=== PATIENT | female | born 1965 | race Caucasian/White ===

== ENCOUNTER 2016-12-28 15:20 | Emergency (ER) | payer OTHER ==
[~2016-12-28] VITALS: Ht 165.1 cm; Wt 63.5 kg
[~2016-12-28 15:20] MED LIST: ASPIRIN81 M1 PO; BIRTH CONTROL PILL PO; GLUCOPHAGE500 MG PO; IBUPROFEN800 MG PO; MOTRIN800 MG PO; NAPROSYN500 MG PO; NORCO 5/325 MG1 TAB PO; PROZAC10 MG PO; UNK ABX
[2016-12-28 15:52] VITALS: BP 126/71
--- NOTE | 2016-12-28 15:59 | NUR ---
PATIENT PRESENTS TO ED WITH PT PRESENTS TO ER W/C/O LEFT EYE PAIN X3 DAYS. HX DM. DENIES N/V/D; SKIN IS PINK/WARM/DRY; AAOX4 WITH EVEN AND STEADY GAIT; LUNGS CLEAR BL; HR EVEN AND REGULAR; PT DENIES ANY FEVER, CP, SOB, OR COUGH AT THIS TIME; PATIENT STATES PAIN OF 5/10 AT THIS TIME; VSS; PATIENT POSITIONED FOR COMFORT; HOB ELEVATED; BEDRAILS UP X2; BED DOWN. ER MD MADE AWARE OF PT STATUS.
--- NOTE | 2016-12-28 16:03 | NUR ---
Dr. Oh evaluating patient at bedside.
[2016-12-28] MEDS ORDERED: LIDOCAINE 1% 500 MG/50 ML VIAL INJ ONE (16:10)
[2016-12-28 16:53] VITALS: BP 120/72
--- NOTE | 2016-12-28 16:53 | NUR ---
Patient discharged with v/s stable. Written and verbal after care instructions given and explained. Patient alert, oriented and verbalized understanding of instructions. Ambulatory with steady gait. All questions addressed prior to discharge. ID band removed. Patient advised to follow up with PMD. Rx of DOXYCYCLINE AND MOTRIN given. Patient educated on indication of medication including possible reaction and side effects. Opportunity to ask questions provided and answered.
== END 2016-12-28 16:53 | disposition home or self-care (01) ==
LOC: MED 15:20
DX: H00.014 Hordeolum externum left upper eyelid (principal); K21.9 Gastro-esophageal reflux disease without esophagitis; E11.9 Type 2 diabetes mellitus without complications; I10 Essential (primary) hypertension; E78.00 Pure hypercholesterolemia, unspecified
CPT/HCPCS: 10021; 99284; J2001

== ENCOUNTER 2017-05-18 21:02 | Emergency (ER) | payer OTHER ==
[~2017-05-18] VITALS: Ht 165.1 cm; Wt 61.2 kg
[~2017-05-18 21:02] MED LIST changes: +ASPI81CT89 PO; -ASPIRIN81 M1 PO; -BIRTH CONTROL PILL PO; +FLUO10CA21 PO; -GLUCOPHAGE500 MG PO; -IBUPROFEN800 MG PO; +METF500T PO; -MOTRIN800 MG PO; +NAPR500T1 PO; -NAPROSYN500 MG PO; -NORCO 5/325 MG1 TAB PO; -PROZAC10 MG PO; -UNK ABX
[2017-05-18 21:14] VITALS: BP 108/73
--- NOTE | 2017-05-18 22:57 | NUR ---
PATIENT LEFT WITHOUT BEING SEEN BY DR. LAMBERT. NO FURTHER CARE PROVIDED FOR PATIENT.
== END 2017-05-18 22:57 | disposition left against medical advice (07) ==
LOC: MED 21:02
DX: R10.9 Unspecified abdominal pain (principal); Z53.21 Procedure and treatment not carried out due to patient leaving prior to being seen by health care provider

== ENCOUNTER 2019-09-21 01:51 | Emergency (ER) | payer OTHER ==
[~2019-09-21] VITALS: Ht 165.1 cm; Wt 68.0 kg
[~2019-09-21 01:51] MED LIST changes: +ASPI-1718 PO; -ASPI81CT89 PO; +NAPR-54 PO; -NAPR500T1 PO
[2019-09-21 01:55] VITALS: BP 123/72
--- NOTE | 2019-09-21 01:55 | NUR ---
to bed # 07 ambulatory
--- NOTE | 2019-09-21 01:55 | NUR ---
54 Y.O FEMALE C/O BURNING, URGENCY AND FREQUENCY OF URINATION X3 DAYS. PAIN IS AN 8/10 DULL PAIN THE THE FLANKS AND LOWER BACK. NO TENDERNESS NOTED UPON PALPATION ON THE LOWER BACK. PATIENT STATE," I KNOW I HAVE A UTI. MY URINE HAS A FOWL SMELL TO IT". A/OX4 FOLLOWS COMMANDS; BREATHING UNLABORED AND SYMMETRICAL. ERMD MADE AWARE OF STATUS. SIDE RAILS X1. PMH: DENTANNA NKDA RX:DENIES Addendum: 09/21/19 at 0229 by CRISTINA HX: OF DIABETES; GALLSTONES; HIGH CHOLESTEROL.
[2019-09-21] MEDS ORDERED: cefTRIAXone 1,000 MG in LIDOCAINE MPF 1% 2.1 ML IM ONE (02:25)
--- NOTE | 2019-09-21 02:38 | NUR ---
Dr. Oh examining patient.
[2019-09-21 02:45] VITALS: BP 123/72
--- NOTE | 2019-09-21 02:45 | NUR ---
PT DISCHARGED WITH PAPERWORK. RX BACTRIM, PYRIDIUM. EDUCATED PT REGARDING MEDICATIONS AND S/E. EDUCATED PT REGARDING D/C DIAGNOSIS AND INSTRUCTIONS. PT VERBALIZED UNDERSTANDING OF TEACHING. TOLD PT TO FOLLOW UP WITH PCP AND AND WHEN TO RETURN TO ED. PT VSS. ALL QUESTIONS ANSWERED.
== END 2019-09-21 02:45 | disposition home or self-care (01) ==
LOC: MED 01:51
DX: N39.0 Urinary tract infection, site not specified (principal); K21.9 Gastro-esophageal reflux disease without esophagitis; I10 Essential (primary) hypertension; E11.9 Type 2 diabetes mellitus without complications; E78.00 Pure hypercholesterolemia, unspecified; Z79.899 Other long term (current) drug therapy; Z79.82 Long term (current) use of aspirin
CPT/HCPCS: 81002; 87086; 87186; 96372; 99283; J0696; J2001

== ENCOUNTER 2020-01-01 22:05 | Emergency (ER) | payer OTHER ==
[~2020-01-01] VITALS: Ht 162.6 cm; Wt 68.0 kg
[~2020-01-01 22:05] MED LIST changes: -ASPI-1718 PO; +ASPI-1822 PO
[2020-01-01 22:10] VITALS: BP 121/84
--- NOTE | 2020-01-01 22:13 | NUR ---
TO LOBBY A/W BED AMBULATORY
--- NOTE | 2020-01-01 23:05 | NUR ---
PT CALLED FROM LOBBY, NO ANSWER, LWBS
--- NOTE | 2020-01-01 23:05 | NUR ---
PATIENT LEFT WITHOUT BEING SEEN BY DR. FITZPATRICK. NO FURTHER CARE PROVIDED FOR PATIENT.
[2020-01-01 23:06] VITALS: BP 121/84
== END 2020-01-01 23:03 | disposition left against medical advice (07) ==
LOC: MED 22:05
DX: R11.10 Vomiting, unspecified (principal); Z53.21 Procedure and treatment not carried out due to patient leaving prior to being seen by health care provider

== ENCOUNTER 2020-04-20 17:47 | Emergency (ER) | payer OTHER ==
[~2020-04-20] VITALS: Ht 160 cm; Wt 66.3 kg
[2020-04-20 17:54] VITALS: BP 100/70
--- NOTE | 2020-04-20 17:54 | NUR ---
54 Y/O F C/C THROAT DISCOMFORT SINCE THIS MORNING. PAIN 3/10 EVERY TIME SHE SWALLOWS, PER PT BELIEVES ITS THE LYMPH NODES, HAS HAD HAPPENED BEFORE. PT NKA. NO HX. NO RX. NO NVD. SIDE RAIL X1. PT NO DISTRESS, EUPNIC. VSS.
--- NOTE | 2020-04-20 17:56 | NUR ---
ERMD AT BEDSIDE
[2020-04-20] MEDS ORDERED: IBUPROFEN 800 MG TAB PO ONE (18:00)
[2020-04-20 18:06] VITALS: BP 100/70
== END 2020-04-20 18:06 | disposition home or self-care (01) ==
LOC: MED 17:47
DX: J02.9 Acute pharyngitis, unspecified (principal); E11.9 Type 2 diabetes mellitus without complications; I10 Essential (primary) hypertension; I51.89 Other ill-defined heart diseases; K21.9 Gastro-esophageal reflux disease without esophagitis; Z79.899 Other long term (current) drug therapy
CPT/HCPCS: 99282

== ENCOUNTER 2020-05-10 12:29 | Emergency (ER) | payer OTHER, SELFPAY ==
[~2020-05-10] VITALS: Ht 160 cm; Wt 62.1 kg
[2020-05-10 12:30] VITALS: BP 106/72
--- NOTE | 2020-05-10 12:35 | NUR ---
54/F presents to ED c/o cough, SOB, sore throat, headache and pain to left flank area starting yesterday. Pt denies any N/V/D. Denies recent travel. States she may have been in contact with someone covid + 4 weeks ago but did not find out he was tested and positive until 2 weeks ago. Denies any medical hx. Denies fever or chills.
--- NOTE | 2020-05-10 13:46 | NUR ---
Patient discharged with v/s stable. Written and verbal after care instructions given and explained. Patient alert, oriented and verbalized understanding of instructions. Ambulatory with steady gait. All questions addressed prior to discharge. ID band removed. Patient advised to follow up with PMD. Rx of ACETAMINOPHEN, IBUPROFEN & PROMETHAZINE given. Patient educated on indication of medication including possible reaction and side effects. Opportunity to ask questions provided and answered.
[2020-05-10 13:47] VITALS: BP 106/72
--- NOTE | 2020-05-15 20:47 | NUR ---
PT POSITIVE FOR COVID-19. RESULTS-SENT TO INFECTION CONTROL AND HOUSE SUP
== END 2020-05-10 13:46 | disposition home or self-care (01) ==
LOC: EEVIPCON 12:29 → MED 12:29
DX: U07.1 COVID-19 (principal); B34.9 Viral infection, unspecified; E11.9 Type 2 diabetes mellitus without complications; F17.210 Nicotine dependence, cigarettes, uncomplicated; F15.10 Other stimulant abuse, uncomplicated; I10 Essential (primary) hypertension; I51.9 Heart disease, unspecified; Z79.899 Other long term (current) drug therapy
CPT/HCPCS: 99283; U0003

== ENCOUNTER 2021-02-24 22:01 | Emergency (ER) | payer OTHER, SELFPAY ==
[~2021-02-24] VITALS: Ht 160 cm; Wt 63.5 kg
[2021-02-24 22:12] VITALS: BP 118/76
[2021-02-24] MEDS ORDERED: CYCLOBENZAPRINE 10 MG TAB PO ONE (23:25)
[2021-02-24] MEDS ORDERED: ACETAMINOPHEN EXTRA STRENGTH 500 MG TAB PO ONE (23:25)
[2021-02-25] MEDS ORDERED: ACET-9882 PO (00:23)
[2021-02-25] MEDS ORDERED: CYCL1POW PO (00:23)
[2021-02-25 00:40] VITALS: BP 115/73
== END 2021-02-25 00:40 | disposition home or self-care (01) ==
LOC: MED 22:01
DX: M54.9 Dorsalgia, unspecified (principal); M25.512 Pain in left shoulder; M79.632 Pain in left forearm; F17.210 Nicotine dependence, cigarettes, uncomplicated; V89.2XXA Person injured in unspecified motor-vehicle accident, traffic, initial encounter; Y93.89 Activity, other specified; Y92.89 Other specified places as the place of occurrence of the external cause; Y99.8 Other external cause status
CPT/HCPCS: 72072; 99283

== ENCOUNTER 2022-03-08 21:16 | Emergency (ER) | payer OTHER ==
[~2022-03-08] VITALS: Ht 162.6 cm; Wt 68.0 kg
[~2022-03-08 21:16] MED LIST changes: +ACET-9882 PO; +CYCL1POW PO; +METF-564 PO; -METF500T PO
[2022-03-08 21:40] VITALS: BP 120/76
--- NOTE | 2022-03-08 21:48 | NUR ---
pt taken to er bed 09
[2022-03-08] MEDS ORDERED: ONDANSETRON 4 MG TAB PO ONE (21:50)
--- NOTE | 2022-03-08 22:07 | NUR ---
XRAY AT BEDSIDE
--- NOTE | 2022-03-08 22:22 | NUR ---
Hilda palmer in [facility] - 03/08/22 at [address] Malagon examining patient.
--- NOTE | 2022-03-08 22:27 | NUR ---
DR ADAM EXAMINING PT
--- NOTE | 2022-03-08 22:31 | NUR ---
ER MD AT BEDSIDE EXAMINING PT
--- NOTE | 2022-03-08 22:32 | NUR ---
56 Y/O FEMALE BIBS, C/O NAUSEA SINCE 0400 TODAY. PT INDUCED VOMIT TO RELIEVE NAUSEA, CLEAR LIQUIDS. PT STATES SHE HAS A FEELING OF FULLNESS AND NO PAIN IN HER ABDOMEN. PT IS CONSTIPATED WITH LAST BM TODAY. NO BLOOD IN VOMIT OR STOOL. A/OX4, GCS-15, UNLABORED BREATHING. PT DENIES FEVER, DIARRHEA, CP, SOB, OR COUGH. PT HAS NO PAIN AT THIS TIME. PT IS AMBULATORY WITH STEADY GAIT. NO SIGN OF INJURY. HX: ACID REFLUX NKA SX: APPENDECTOMY, , AND HYSTERECTOMY
[2022-03-08] MEDS ORDERED: MAGNESIUM HYDROXIDE 2400 MG/30 ML UDC PO ONE (22:40)
[2022-03-08 22:44] LABS: BASOPHILS # (AUTO) 0.1 K/uL (0.00-0.22); BASOPHILS % (AUTO) 1.1 % (0.0-2.0); EOSINOPHILS # (AUTO) 0.1 K/uL (0-0.4); EOSINOPHILS % (AUTO) 1.8 % (0.0-4.0); HEMATOCRIT 41.1 % (36-48); HEMOGLOBIN 13.7 g/dL (12.0-16.0); LYMPHOCYTES # (AUTO) 2.5 K/uL (2.5-16.5); MEAN CORPUSCULAR HEMOGLOBIN 31 pg (27-31); MEAN CORPUSCULAR HGB CONC 33 g/dL (33-37); MONOCYTES # (AUTO) 0.4 K/uL (0.8-1.0); MONOCYTES % (AUTO) 6.2 % (1.7-9.3); NEUTROPHILS # (AUTO) 3.5 K/uL (1.8-7.7); NEUTROPHILS % (AUTO) 52.9 % (42.2-75.2); PLATELET COUNT (AUTO) 259 K/uL (140-450); RED BLOOD CELL COUNT(AUTO) 4.47 MIL/uL (4.20-5.40); RED CELL DISTRIBUTION WIDTH 13.6 % (11.6-13.7); WHITE BLOOD COUNT (AUTO) 6.6 K/uL (4.8-10.8)
[2022-03-08 23:23] LABS: ALBUMIN 3.4 g/dL (3.4-5.0); ANION GAP 11.4 (8-16); ASPARTATE AMINOTRANSFERASE 19 U/L (15-37); CARBON DIOXIDE 26.2 mmol/L (21-32); CHLORIDE 106 mmol/L (98-107); CREATININE 0.8 mg/dL (0.6-1.3); GFR ARICAN-AMERICAN 96 mL/min (>90); GLUCOSE 122 mg/dL (74-106); LIPASE 114 U/L (73-393); POTASSIUM 3.6 mmol/L (3.5-5.1); SODIUM SERUM 140 mmol/L (136-145); TOTAL BILIRUBIN 0.2 mg/dL (0.0-1.0); UREA NITROGEN, BLOOD 17 mg/dL (7-18)
[2022-03-09] MEDS ORDERED: LACT10SO86 PO (00:40)
[2022-03-09] MEDS ORDERED: ONDA-188 SL (00:40)
[2022-03-09 00:50] VITALS: BP 120/72
--- NOTE | 2022-03-09 00:51 | NUR ---
Patient discharged with v/s stable. Written and verbal after care instructions given and explained. Patient alert, oriented and verbalized understanding of instructions. Ambulatory with steady gait. All questions addressed prior to discharge. ID band removed. Patient advised to follow up with PMD. Rx of LACTULOSE AND ZOFRAN given. Patient educated on indication of medication including possible reaction and side effects. Opportunity to ask questions provided and answered. VSS, A/OX4, AMBULATORY, UNLABORED BREATHING, AND CALM DEMEANOR.
[2022-03-09] MEDS ORDERED: CEPH-588 PO (00:55)
== END 2022-03-09 00:51 | disposition home or self-care (01) ==
LOC: MED 21:16
DX: N39.0 Urinary tract infection, site not specified (principal); R11.0 Nausea; K59.00 Constipation, unspecified; K21.9 Gastro-esophageal reflux disease without esophagitis; I10 Essential (primary) hypertension; F17.200 Nicotine dependence, unspecified, uncomplicated; Z90.710 Acquired absence of both cervix and uterus; Z98.890 Other specified postprocedural states; Z90.49 Acquired absence of other specified parts of digestive tract; Z79.899 Other long term (current) drug therapy; Z79.84 Long term (current) use of oral hypoglycemic drugs; Z79.82 Long term (current) use of aspirin; Z71.6 Tobacco abuse counseling
CPT/HCPCS: 36415; 71045; 80053; 81002; 81025; 83690; 84484; 85025; 93005; 99285; Q0162

== ENCOUNTER 2022-04-26 16:57 | Emergency (ER) | payer OTHER ==
[~2022-04-26] VITALS: Ht 160 cm; Wt 70.3 kg
[~2022-04-26 16:57] MED LIST changes: +CEPH-588 PO; +LACT10SO86 PO; +METF-346 PO; -METF-564 PO; +ONDA-188 SL
[2022-04-26 17:06] VITALS: BP 130/88
--- NOTE | 2022-04-26 17:39 | NUR ---
PT AMBULATED TO BED 02.
[2022-04-26] MEDS ORDERED: KETOROLAC 15 MG/ML VIAL IVP ONE (18:00)
[2022-04-26] MEDS ORDERED: diphenhydrAMINE 50 MG/ML VIAL IVP ONE (18:00)
[2022-04-26] MEDS ORDERED: NACL 0.9% 1,000 ML IV ONE (18:00)
[2022-04-26] MEDS ORDERED: PROCHLORPERAZINE 10 MG/2 ML VIAL IVP ONE (18:00)
[2022-04-26] MEDS ORDERED: IMI25 PO (18:51)
[2022-04-26] MEDS ORDERED: NAPR-54 PO (18:51)
--- NOTE | 2022-04-26 19:13 | NUR ---
GAVE REPORT TO JEAN CARLOS TSE. TRANSFER OF CARE AT THIS TIME.
[2022-04-26 20:19] VITALS: BP 129/88
== END 2022-04-26 20:20 | disposition home or self-care (01) ==
LOC: MED 16:57
DX: G43.909 Migraine, unspecified, not intractable, without status migrainosus (principal); R03.0 Elevated blood-pressure reading, without diagnosis of hypertension; E11.9 Type 2 diabetes mellitus without complications; E78.00 Pure hypercholesterolemia, unspecified; K21.9 Gastro-esophageal reflux disease without esophagitis; I10 Essential (primary) hypertension; Z79.899 Other long term (current) drug therapy; Z79.1 Long term (current) use of non-steroidal anti-inflammatories (NSAID); Z79.2 Long term (current) use of antibiotics; Z79.82 Long term (current) use of aspirin
CPT/HCPCS: 96361; 96374; 96375; 99284; J0780; J1200; J1885; J7030

== ENCOUNTER 2022-05-15 20:29 | Emergency (ER) | payer OTHER ==
[~2022-05-15] VITALS: Ht 160 cm; Wt 68.0 kg
[~2022-05-15 20:29] MED LIST changes: +IMI25 PO
[2022-05-15 20:50] VITALS: BP 108/73
--- NOTE | 2022-05-15 21:02 | NUR ---
Blood for labwork drawn from left arm per reproduction machine loader. Patient tolerated well.
[2022-05-15 21:33] LABS: BASOPHILS # (AUTO) 0.1 K/uL (0.00-0.22); BASOPHILS % (AUTO) 0.8 % (0.0-2.0); EOSINOPHILS # (AUTO) 0.2 K/uL (0-0.4); EOSINOPHILS % (AUTO) 1.9 % (0.0-4.0); HEMOGLOBIN 14.8 g/dL (12.0-16.0); MEAN CORPUSCULAR HEMOGLOBIN 30 pg (27-31); MEAN CORPUSCULAR HGB CONC 33 g/dL (33-37); MEAN CORPUSCULAR VOLUME 92.7 fL (80-94); MONOCYTES # (AUTO) 0.5 K/uL (0.8-1.0); MONOCYTES % (AUTO) 5.7 % (1.7-9.3); NEUTROPHILS # (AUTO) 5.2 K/uL (1.8-7.7); NEUTROPHILS % (AUTO) 57.6 % (42.2-75.2); PLATELET COUNT (AUTO) 287 K/uL (140-450); RED BLOOD CELL COUNT(AUTO) 4.85 MIL/uL (4.20-5.40); RED CELL DISTRIBUTION WIDTH 13.7 % (11.6-13.7)
[2022-05-15 21:47] LABS: ANION GAP 10.6 (8-16); CREATININE 0.8 mg/dL (0.6-1.3); POTASSIUM 3.6 mmol/L (3.5-5.1); TOTAL BILIRUBIN 0.4 mg/dL (0.0-1.0)
--- NOTE | 2022-05-16 00:23 | NUR ---
Dr. Dominguez examining patient
[2022-05-16] MEDS ORDERED: DICYCLOMINE 20 MG/2 ML VIAL IM ONE (00:25)
[2022-05-16] MEDS ORDERED: BEN10 PO (01:11)
[2022-05-16 01:18] VITALS: BP 135/75
--- NOTE | 2022-05-16 01:18 | NUR ---
Patient discharged with v/s stable. Written and verbal after care instructions given and explained for Diarrhea, Adult. Patient alert, oriented and verbalized understanding of instructions. Ambulatory with steady gait. All questions addressed prior to discharge. ID band removed. Patient advised to follow up with PMD. Rx of Bentyl given. Patient educated on indication of medication including possible reaction and side effects. Opportunity to ask questions provided and answered.
[2022-05-16 01:43] LABS: BARBITURATE, URINE NEGATIVE ng/ml (NEG <=200); BENZODIAZEPINE, URINE NEGATIVE ng/mL (NEG <=200); CANNABINOID, URINE NEGATIVE ng/mL (NEG <=50); COCAINE, URINE NEGATIVE ng/mL (NEG <=300); OPIATE, URINE NEGATIVE ng/mL (NEG <=2000); PHENCYCLIDINE SCREEN,URINE NEGATIVE ng/mL (NEG <=25)
== END 2022-05-16 01:18 | disposition home or self-care (01) ==
LOC: MED 20:29 → EEVIPCON 20:29 → MED 05-16 01:18
DX: R19.7 Diarrhea, unspecified (principal); E11.9 Type 2 diabetes mellitus without complications; K21.9 Gastro-esophageal reflux disease without esophagitis; I10 Essential (primary) hypertension; F17.210 Nicotine dependence, cigarettes, uncomplicated; Z79.899 Other long term (current) drug therapy; Z79.84 Long term (current) use of oral hypoglycemic drugs; Z79.82 Long term (current) use of aspirin; Z90.49 Acquired absence of other specified parts of digestive tract
CPT/HCPCS: 36415; 80053; 80305; 81002; 81025; 83690; 85025; 96372; 99283; J0500

== ENCOUNTER 2022-05-20 06:43 | Emergency (ER) | payer OTHER ==
[~2022-05-20] VITALS: Ht 160 cm; Wt 68.0 kg
[~2022-05-20 06:43] MED LIST changes: +BEN10 PO
[2022-05-20 06:44] VITALS: BP 121/63
--- NOTE | 2022-05-20 07:01 | NUR ---
56 yo/f presents to ED w c/o migraine 10/10 pressure, non-rad constant x1 day worsening x2 hours, + chest tightness 8/10 radiating to epigastric area int x2 hour, + nausea. Connected to monitor. ermd at bedside assessing pt. pmh: migraines allergies: denies
[2022-05-20] MEDS ORDERED: NACL 0.9% 1,000 ML IV SCH (07:10)
[2022-05-20] MEDS ORDERED: diphenhydrAMINE 50 MG/ML VIAL IVP ONE (07:10)
[2022-05-20] MEDS ORDERED: KETOROLAC 30 MG/ML VIAL IVP ONE (07:10)
[2022-05-20] MEDS ORDERED: DEXAMETHASONE 10 MG/ML VIAL IVP ONE (07:10)
[2022-05-20] MEDS ORDERED: METOCLOPRAMIDE 10 MG/2 ML INJ VIAL IVP ONE (07:10)
--- NOTE | 2022-05-20 07:18 | NUR ---
Pt report given to marta mcmahon. Transfer of care at this time.
[2022-05-20 08:13] LABS: BASOPHILS # (AUTO) 0.1 K/uL (0.00-0.22); BASOPHILS % (AUTO) 1.1 % (0.0-2.0); EOSINOPHILS # (AUTO) 0.1 K/uL (0-0.4); EOSINOPHILS % (AUTO) 1.2 % (0.0-4.0); HEMATOCRIT 35.7 % (36-48); HEMOGLOBIN 11.9 g/dL (12.0-16.0); LYMPHOCYTES # (AUTO) 0.5 K/uL (2.5-16.5); LYMPHOCYTES % (AUTO) 9.9 % (20.5-51.1); MEAN CORPUSCULAR HEMOGLOBIN 30 pg (27-31); MEAN CORPUSCULAR HGB CONC 33 g/dL (33-37); MONOCYTES # (AUTO) 0.6 K/uL (0.8-1.0); NEUTROPHILS # (AUTO) 3.9 K/uL (1.8-7.7); NEUTROPHILS % (AUTO) 76.8 % (42.2-75.2); PLATELET COUNT (AUTO) 203 K/uL (140-450); RED BLOOD CELL COUNT(AUTO) 3.93 MIL/uL (4.20-5.40); RED CELL DISTRIBUTION WIDTH 13.3 % (11.6-13.7); WHITE BLOOD COUNT (AUTO) 5.1 K/uL (4.8-10.8)
[2022-05-20 08:18] LABS: ALBUMIN 3.1 g/dL (3.4-5.0); ANION GAP 10.9 (8-16); ASPARTATE AMINOTRANSFERASE 71 U/L (15-37); CARBON DIOXIDE 26.8 mmol/L (21-32); CHLORIDE 105 mmol/L (98-107); CREATININE 0.6 mg/dL (0.6-1.3); GFR ARICAN-AMERICAN 134 mL/min (>90); GLUCOSE 111 mg/dL (74-106); POTASSIUM 3.7 mmol/L (3.5-5.1); SODIUM SERUM 139 mmol/L (136-145); TOTAL BILIRUBIN 0.1 mg/dL (0.0-1.0); UREA NITROGEN, BLOOD 13 mg/dL (7-18)
[2022-05-20] MEDS ORDERED: DEXAMETHASONE 10 MG/ML VIAL ONE (08:34)
[2022-05-20] MEDS ORDERED: diphenhydrAMINE 50 MG/ML VIAL ONE (08:35)
[2022-05-20] MEDS ORDERED: KETOROLAC 30 MG/ML VIAL ONE (08:35)
[2022-05-20] MEDS ORDERED: METOCLOPRAMIDE 10 MG/2 ML INJ VIAL ONE (08:35)
--- NOTE | 2022-05-20 09:30 | NUR ---
GRECIA AND INFLU SWAB SENT TO LAB WITH GOSIA
--- NOTE | 2022-05-20 09:49 | NUR ---
LAB AT BEDSIDE
--- NOTE | 2022-05-20 10:35 | NUR ---
PT CALM AND RESTING.
[2022-05-20] MEDS ORDERED: ACET-10509 PO (11:17)
[2022-05-20 11:25] VITALS: BP 123/65
[2022-05-20 11:29] LABS: APPEARANCE,URINE CLEAR (CLEAR); BILIRUBIN,URINE NEGATIVE (NEGATIVE); BLOOD, URINE TRACE-I (NEGATIVE); COLOR,URINE YELLOW (YELLOW); LEUKOCYTE ESTERASE ,URINE NEGATIVE (NEGATIVE); NITRITE, URINE NEGATIVE (NEGATIVE); PH,URINE 6.5 (5.0-9.0); UGLUCOSE NEGATIVE (NEGATIVE)
[2022-05-20 11:41] LABS: BARBITURATE, URINE NEGATIVE ng/ml (NEG <=200); BENZODIAZEPINE, URINE NEGATIVE ng/mL (NEG <=200); CANNABINOID, URINE NEGATIVE ng/mL (NEG <=50); COCAINE, URINE NEGATIVE ng/mL (NEG <=300); OPIATE, URINE NEGATIVE ng/mL (NEG <=2000); PHENCYCLIDINE SCREEN,URINE NEGATIVE ng/mL (NEG <=25)
[2022-05-20 11:49] LABS: CALCIUM OXALATE CRYSTALS,UR None Seen /HPF (None Seen); COARSE GRANULAR CASTS,URINE None Seen /LPF (None Seen); FINE GRANULAR CASTS,URINE None Seen /LPF (None Seen); HYALINE CASTS, URINE None Seen /LPF (None Seen); OTHER CASTS, URINE None Seen /LPF (None Seen); OTHER CRYSTALS,URINE None Seen /HPF (None Seen); RED BLOOD CELL CASTS,URINE None Seen /LPF (None Seen); TRICHOMONAS,URINE None Seen /HPF (None Seen); TRIPLE PHOSPHATE CRYSTAL,UR None Seen /HPF (None Seen); URIC ACID CRYSTALS,URINE None Seen /HPF (None Seen); URINE AMORPHOUS URATE None Seen /HPF (None Seen); WAXY CASTS,URINE None Seen /LPF (None Seen); WBC,URINE 0-5 /HPF (0-5); YEAST,URINE None Seen /HPF (None Seen)
== END 2022-05-20 11:25 | disposition home or self-care (01) ==
LOC: MED 06:43
DX: G43.909 Migraine, unspecified, not intractable, without status migrainosus (principal); Z20.822 Contact with and (suspected) exposure to COVID-19; I10 Essential (primary) hypertension; R74.01 Elevation of levels of liver transaminase levels; R07.9 Chest pain, unspecified; B34.9 Viral infection, unspecified; K21.9 Gastro-esophageal reflux disease without esophagitis; E11.9 Type 2 diabetes mellitus without complications; F15.90 Other stimulant use, unspecified, uncomplicated; Z79.899 Other long term (current) drug therapy; Z79.82 Long term (current) use of aspirin; Z79.84 Long term (current) use of oral hypoglycemic drugs
CPT/HCPCS: 36415; 71045; 80053; 80305; 81001; 81025; 82550; 83605; 84484; 85025; 87040; 87086; 87426; 87804; 93005; 96361; 96374; 96375; 99285; J1100; J1200; J1885; J2765; Q0092; J7030

== ENCOUNTER 2022-08-09 21:10 | Emergency (ER) | payer OTHER ==
[~2022-08-09] VITALS: Ht 162.6 cm; Wt 67.6 kg
[~2022-08-09 21:10] MED LIST changes: +ACET-10509 PO
[2022-08-09 21:24] VITALS: BP 117/82
--- NOTE | 2022-08-09 23:30 | NUR ---
PATIENT CALLED TO BE ON BED , NO RESPONSE. PATIENT LEFT WITHOUT BEING SEEN BY DR. ANDERSON. NO FURTHER CARE PROVIDED FOR PATIENT.
--- NOTE | 2022-08-09 23:35 | NUR ---
CALLED FOR THE SECOND TIME, NO RESPONSE
--- NOTE | 2022-08-09 23:45 | NUR ---
CALLED FOR THE THIRD TIME, NO RESPONSE
== END 2022-08-09 23:30 | disposition left against medical advice (07) ==
LOC: MED 21:10
DX: M54.50 Low back pain, unspecified (principal); Z53.21 Procedure and treatment not carried out due to patient leaving prior to being seen by health care provider

== ENCOUNTER 2022-09-05 15:44 | Emergency (ER) | payer OTHER ==
[~2022-09-05] VITALS: Ht 160 cm; Wt 64.9 kg
[2022-09-05 16:01] VITALS: BP 125/89
[2022-09-05] MEDS ORDERED: ONDANSETRON 4 MG/2 ML VIAL IVP ONE ×2 (16:35→18:05)
[2022-09-05] MEDS ORDERED: NACL 0.9% 1,000 ML IV ONE (16:35)
[2022-09-05 16:48] LABS: BASOPHILS # (AUTO) 0.1 K/uL (0.00-0.22); BASOPHILS % (AUTO) 0.9 % (0.0-2.0); EOSINOPHILS # (AUTO) 0.1 K/uL (0-0.4); HEMATOCRIT 42.8 % (36-48); HEMOGLOBIN 14.4 g/dL (12.0-16.0); LYMPHOCYTES # (AUTO) 2.6 K/uL (2.5-16.5); LYMPHOCYTES % (AUTO) 37.1 % (20.5-51.1); MEAN CORPUSCULAR HEMOGLOBIN 31 pg (27-31); MEAN CORPUSCULAR HGB CONC 34 g/dL (33-37); MEAN CORPUSCULAR VOLUME 91.9 fL (80-94); MONOCYTES # (AUTO) 0.5 K/uL (0.8-1.0); MONOCYTES % (AUTO) 6.6 % (1.7-9.3); NEUTROPHILS # (AUTO) 3.8 K/uL (1.8-7.7); NEUTROPHILS % (AUTO) 54.4 % (42.2-75.2); PLATELET COUNT (AUTO) 252 K/uL (140-450); RED BLOOD CELL COUNT(AUTO) 4.65 MIL/uL (4.20-5.40); RED CELL DISTRIBUTION WIDTH 13.3 % (11.6-13.7)
--- NOTE | 2022-09-05 17:09 | NUR ---
57 y/o female bib self with c/o nausea, vomiting and epigastric pain x yesterday. Patient states she has 7/10 dull pain to epigastric area. Patient denies any new foods or sick contacts. Patient states she has had this once before but that it went away after a while. Denies taking any medication for nausea. Denies fever, chills or diarrhea. Patient's last BM was 09/05/22. Medical History: Denies NKDA
--- NOTE | 2022-09-05 17:10 | NUR ---
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 PATIENT REPORTS HX OF ACID REFLUX AND BELIEVES MAY BE RELATED TO PAIN, PATIENT DENIES PAIN, DIARRHEA OR CONSTIPATION, STATES "I'VE BEEN TRYING TO MAKE MYSELF THROW UP BUT I CAN'T." DENIES RECENT SICK CONTACTS.
[2022-09-05 17:15] LABS: ALBUMIN 3.4 g/dL (3.4-5.0); CREATININE 0.7 mg/dL (0.6-1.3); TOTAL BILIRUBIN 0.3 mg/dL (0.0-1.0)
--- NOTE | 2022-09-05 17:32 | NUR ---
X-Ray at bedside.
[2022-09-05] MEDS ORDERED: PANTOPRAZOLE 40 MG INJ VIAL IVP ONE (18:05)
--- NOTE | 2022-09-05 18:36 | NUR ---
Patient ambulated to restroom with steady gait.
[2022-09-05] MEDS ORDERED: PANT40EC PO (19:07)
[2022-09-05] MEDS ORDERED: ONDA-188 PO (19:07)
--- NOTE | 2022-09-05 19:12 | NUR ---
Report given to JEAN CARLOS Clark for transfer of care.
[2022-09-05 19:23] VITALS: BP 115/72
--- NOTE | 2022-09-05 19:24 | NUR ---
Patient discharged with v/s stable. Written and verbal after care instructions given and explained. Patient alert, oriented and verbalized understanding of instructions. Ambulatory with steady gait. All questions addressed prior to discharge. ID band removed. Patient advised to follow up with PMD. Rx given to patient. Patient educated on indication of medication including possible reaction and side effects. Opportunity to ask questions provided and answered. PAtient stated after receiving medication and eating food, she "feels better."
[2022-09-05 22:16] LABS: APPEARANCE,URINE CLEAR (CLEAR); BILIRUBIN,URINE NEGATIVE (NEGATIVE); BLOOD, URINE TRACE-I (NEGATIVE); COLOR,URINE YELLOW (YELLOW); LEUKOCYTE ESTERASE ,URINE NEGATIVE (NEGATIVE); NITRITE, URINE NEGATIVE (NEGATIVE); UGLUCOSE NEGATIVE (NEGATIVE)
[2022-09-05 22:31] LABS: RBC,URINE 0-5 /HPF (0-5)
[2022-09-08] MEDS ORDERED: CEPH500C16 PO (19:00)
--- NOTE | 2022-09-08 19:03 | NUR ---
LAT ENTRY, RECEIVED POSITIVE URINE CULTURE. FORM GIVEN TO DR BAH. RX OF KEFLEX SENT TO PTS PHARMACY. DR BAH ATTEMPTED TO CALL PT TO INFORM THEM, NO ANSWER, LEFT MESSAGE. FORM PLACED IN BINDER.
== END 2022-09-05 19:25 | disposition home or self-care (01) ==
LOC: MED 15:44
DX: K52.9 Noninfective gastroenteritis and colitis, unspecified (principal); N18.2 Chronic kidney disease, stage 2 (mild); E11.9 Type 2 diabetes mellitus without complications; I10 Essential (primary) hypertension; I25.10 Atherosclerotic heart disease of native coronary artery without angina pectoris; Z79.4 Long term (current) use of insulin; Z79.899 Other long term (current) drug therapy
CPT/HCPCS: 36415; 74018; 80053; 81001; 81025; 83605; 83690; 85025; 87086; 96361; 96374; 96375; 96376; 99284; C9113; J2405; J7030; Q0092

== ENCOUNTER 2023-03-08 21:55 | Emergency (ER) | payer OTHER ==
[~2023-03-08] VITALS: Ht 160 cm; Wt 65.3 kg
[~2023-03-08 21:55] MED LIST changes: +CEPH500C16 PO; +LACT-85 PO; -LACT10SO86 PO; +ONDA-188 PO; +PANT40EC PO
[2023-03-08 22:06] VITALS: BP 109/50
--- NOTE | 2023-03-08 22:21 | NUR ---
PT TAKEN TO BED 7
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
--- NOTE | 2023-03-08 22:56 | NUR ---
Dr. Mcmillan examining patient.
[2023-03-09 00:05] VITALS: BP 109/50
--- NOTE | 2023-03-09 00:05 | NUR ---
Patient discharged with v/s stable. Written and verbal after care instructions given and explained. Patient verbalized understanding. Ambulatory with steady gait. All questions addressed prior to discharge. Advised to follow up with PMD.
== END 2023-03-09 00:05 | disposition home or self-care (01) ==
LOC: MED 21:55
DX: F32.A Depression, unspecified (principal); Z79.899 Other long term (current) drug therapy
CPT/HCPCS: 99281

== ENCOUNTER 2023-07-22 16:42 | Emergency (ER) | payer OTHER ==
[~2023-07-22] VITALS: Ht 162.6 cm; Wt 64.0 kg
[2023-07-22 17:02] VITALS: BP 120/74; PULSE 90; RESP 20; TEMP 98; O2SAT 100
[2023-07-22 19:40] LABS: APPEARANCE,URINE CLEAR (CLEAR); BILIRUBIN,URINE 1+ (NEGATIVE); BLOOD, URINE 3+ (NEGATIVE); COLOR,URINE YELLOW (YELLOW); LEUKOCYTE ESTERASE ,URINE 1+ (NEGATIVE); NITRITE, URINE NEGATIVE (NEGATIVE); PROTEIN,URINE 1+ (NEGATIVE); UGLUCOSE NEGATIVE (NEGATIVE)
[2023-07-22 19:47] LABS: BACTERIA,URINE 2+ /HPF (None Seen); ICTOTEST NEGATIVE (NEGATIVE); MUCUS,URINE None Seen /LPF (None Seen); RBC,URINE TOO NUMEROUS TO COUN /HPF (0-5); SQUAMOUS EPITHELIAL CELL,UR None Seen /LPF (0-3 (FEW))
[2023-07-22] MEDS ORDERED: CEPH250C16 PO (19:48)
== END 2023-07-22 20:08 | disposition home or self-care (01) ==
LOC: MED 16:42
DX: N39.0 Urinary tract infection, site not specified (principal); K21.9 Gastro-esophageal reflux disease without esophagitis; Z79.899 Other long term (current) drug therapy
CPT/HCPCS: 81001; 81025; 99283

== ENCOUNTER 2023-07-24 04:00 | Emergency (ER) | payer OTHER ==
[~2023-07-24] VITALS: Ht 162.6 cm; Wt 63.5 kg
[~2023-07-24 04:00] MED LIST changes: +CEPH250C16 PO
[2023-07-24 04:10] VITALS: BP 129/87; PULSE 82; RESP 17; TEMP 98.2; O2SAT 98
[2023-07-24 04:33] LABS: APPEARANCE,URINE CLEAR (CLEAR); BILIRUBIN,URINE NEGATIVE (NEGATIVE); BLOOD, URINE 2+ (NEGATIVE); COLOR,URINE YELLOW (YELLOW); LEUKOCYTE ESTERASE ,URINE TRACE (NEGATIVE); NITRITE, URINE POSITIVE (NEGATIVE); PH,URINE 6.5 (5.0-9.0); PROTEIN,URINE 2+ (NEGATIVE); UGLUCOSE NEGATIVE (NEGATIVE)
[2023-07-24 04:41] LABS: BACTERIA,URINE 10-30 (MOD) /HPF (None Seen); MUCUS,URINE 1+ /LPF (None Seen); RBC,URINE TOO NUMEROUS TO COUN /HPF (0-5); SQUAMOUS EPITHELIAL CELL,UR 0-3 (FEW) /LPF (0-3 (FEW)); WBC,URINE TOO MANY TO COUNT /HPF (0-5)
[2023-07-24] MEDS ORDERED: KETOROLAC 15 MG/ML VIAL IM ONE (05:30)
[2023-07-24] MEDS ORDERED: ACETAMINOPHEN 325 MG TAB PO ONE (05:30)
[2023-07-24] MEDS ORDERED: IBUPROFEN 400 MG TAB PO ONE (05:35)
[2023-07-24 05:36] VITALS: BP 129/87; PULSE 82; RESP 17; TEMP 98.2; O2SAT 98
== END 2023-07-24 05:36 | disposition home or self-care (01) ==
LOC: MED 04:00
DX: N39.0 Urinary tract infection, site not specified (principal); R30.0 Dysuria; K21.9 Gastro-esophageal reflux disease without esophagitis; Z79.899 Other long term (current) drug therapy
CPT/HCPCS: 81001; 87086; 99283

== ENCOUNTER 2024-03-06 15:04 | Emergency (ER) | payer OTHER ==
[~2024-03-06] VITALS: Ht 162.6 cm; Wt 63.0 kg
[~2024-03-06 15:04] MED LIST changes: +NAPR-337 PO; -NAPR-54 PO
[2024-03-06 15:39] VITALS: BP 101/83; PULSE 101; RESP 18; TEMP 98.1; O2SAT 98
[2024-03-06 15:50] VITALS: O2SAT 98
[2024-03-06] MEDS ORDERED: LIDOCAINE MPF 1% 5 ML ONE (16:04)
[2024-03-06] MEDS ORDERED: cefTRIAXone 500 MG VIAL ONE (16:04)
[2024-03-06 16:10] LABS: APPEARANCE,URINE SLIGHTLY CLOUDY (CLEAR); BILIRUBIN,URINE NEGATIVE (NEGATIVE); BLOOD, URINE 3+ (NEGATIVE); COLOR,URINE YELLOW (YELLOW); LEUKOCYTE ESTERASE ,URINE 2+ (NEGATIVE); NITRITE, URINE NEGATIVE (NEGATIVE); PROTEIN,URINE NEGATIVE (NEGATIVE); UGLUCOSE NEGATIVE (NEGATIVE); UROBILINOGEN,URINE 0.2 EU/dL (0.2 - 1)
[2024-03-06] MEDS: cefTRIAXone 500 MG in LIDOCAINE MPF 1% 1 ML IM ONE (16:10)
[2024-03-06] MEDS ORDERED: NITR100C7 PO (16:14)
[2024-03-06] MEDS ORDERED: PYR100 PO (16:14)
[2024-03-06] MEDS ORDERED: DOXY-690 PO (16:14)
[2024-03-06 16:16] LABS: BACTERIA,URINE 2+ /HPF (None Seen); MUCUS,URINE None Seen /LPF (None Seen); SQUAMOUS EPITHELIAL CELL,UR 4-10 (MOD) /LPF (0-3 (FEW))
[2024-03-06 16:21] VITALS: BP 145/82; PULSE 66; RESP 16; TEMP 98; O2SAT 99
== END 2024-03-06 16:21 | disposition home or self-care (01) ==
LOC: MED 15:04
DX: N39.0 Urinary tract infection, site not specified (principal); K21.9 Gastro-esophageal reflux disease without esophagitis; Z90.49 Acquired absence of other specified parts of digestive tract; Z79.1 Long term (current) use of non-steroidal anti-inflammatories (NSAID); Z79.84 Long term (current) use of oral hypoglycemic drugs; Z79.82 Long term (current) use of aspirin; Z79.899 Other long term (current) drug therapy
CPT/HCPCS: 81001; 81025; 87086; 87491; 96372; 99283; J0696; J2001

== ENCOUNTER 2024-06-06 18:02 | Emergency (ER) | payer OTHER ==
[~2024-06-06] VITALS: Ht 160 cm; Wt 64.9 kg
[~2024-06-06 18:02] MED LIST changes: +DOXY-690 PO; +NITR100C7 PO; +PYR100 PO
[2024-06-06 18:46] VITALS: BP 106/81; PULSE 86; RESP 16; TEMP 98.3; O2SAT 100
[2024-06-06] MEDS ORDERED: cefTRIAXone 1,000 MG VIAL ONE (20:45)
[2024-06-06] MEDS ORDERED: LIDOCAINE MPF 1% 5 ML ONE (20:45)
[2024-06-06] MEDS: cefTRIAXone 1,000 MG in LIDOCAINE MPF 1% 2.1 ML IM ONE (20:53)
[2024-06-06] MEDS ORDERED: AMOX1TAB8 PO (21:10)
== END 2024-06-06 21:15 | disposition home or self-care (01) ==
LOC: MED 18:02
DX: S81.811A Laceration without foreign body, right lower leg, initial encounter (principal); K21.9 Gastro-esophageal reflux disease without esophagitis; Z79.899 Other long term (current) drug therapy; Z79.82 Long term (current) use of aspirin; W54.0XXA Bitten by dog, initial encounter; Y93.89 Activity, other specified; Y92.89 Other specified places as the place of occurrence of the external cause; Y99.8 Other external cause status
CPT/HCPCS: 90471; 90715; 96372; 99284; J0696; J2001